=== PATIENT | female | born 1980 | race Caucasian/White ===

== ENCOUNTER 2024-08-23 08:49 | Day surgery (SDC) | payer BC, OTHER ==
[2024-08-23] MEDS ORDERED: Lactated Ringers 1,000 ML IV ONE (08:57)
[2024-08-23 09:04] LABS: HCG URINE TEST NEGATIVE (NEGATIVE)
[2024-08-23 09:08] LABS: Hematocrit 38.8 % (34.1-44.9); Hemoglobin 12.9 g/dL (11.2-15.7); Mean Cell Volume 82.4 fL (79.4-94.8); Mean Corpuscular Hemoglobin 27.4 pg (25.6-32.2); Mean Corpuscular Hgb Concent. 33.2 g/dL (32.2-35.5); Mean Platelet Volume 8.8 fL (9.4-12.3); Platelet Count 267 x10^3/uL (182-369); Red Blood Count 4.71 x10^6/uL (3.93-5.22); Red Cell Distribution Width 13.2 % (11.7-14.4); White Blood Count 6.2 x10^3/uL (3.98-10.04)
[2024-08-23] MEDS: Lactated Ringers 1,000 ML IV SCH (09:10)
[2024-08-23] MEDS: CLINDAMYCIN-D5W 900 MG/50 ML*** 900 MG/50 ML BAG IV SCH (09:15)
[2024-08-23 09:20] LABS: ALBUMIN 4.5 g/dL (3.5-5.0); ANION GAP 14.4 MEQ/L (5-15); BILIRUBIN,TOTAL 0.5 mg/dL (0.2-1.3); Calcium 9.1 mg/dL (8.4-10.2); Creatinine 1 0.73 mg/dL (0.52-1.04); EST GLOMERULAR FILTRATION RATE 102.7 ML/MIN; Potassium 4.3 mmol/L (3.5-5.1)
[2024-08-23] MEDS ORDERED: propofoL IV ONE (11:56)
[2024-08-23] MEDS ORDERED: dexAMETHasone sodium phosphate ONE (11:56)
[2024-08-23] MEDS ORDERED: Zofran 4 MG/2 ML VIAL ONE (11:56)
[2024-08-23] MEDS ORDERED: Marcaine Mpf 0.5% Vial 30 Ml ONE (12:12)
[2024-08-23] MEDS ORDERED: Xylocaine 1% Vial 30 ML PF IJ ONE (12:12)
[2024-08-23] MEDS ORDERED: PHENYLEPHRINE HCL ONE (12:22)
[2024-08-23] MEDS ORDERED: Ephedrine Sulfate 50 MG/ML ONE (12:22)
[2024-08-23] MEDS ORDERED: ROBINUL ONE (12:27)
--- NOTE | 2024-08-23 13:11 | XRAY ---
Indication: Right 1st MTP arthroscopy. Intraoperative fluoroscopy provided 54 seconds. 14 digital spot images submitted for interpretation demonstrates arthrodesis 1st MTP with intact fixation plate/screws. Correlate with intraoperative findings/report.
[2024-08-23 14:19] VITALS: BP 127/77; PULSE 96; RESP 16; TEMP 98.5; O2SAT 96
--- NOTE | 2024-08-23 15:13 | XRAY ---
54 seconds of fluoroscopy was used in surgery for a right 1st MTP arthroscopy.
--- NOTE | 2024-08-24 12:03 | OP ---
SURGERY DATE/TIME: 08/23/2024 [id number] PREOPERATIVE DIAGNOSES: 1) Osteoarthritis, first metatarsophalangeal joint, right foot. 2) Pain, right foot. POSTOPERATIVE DIAGNOSES: 1) Osteoarthritis, first metatarsophalangeal joint, right foot. 2) Pain, right foot. PROCEDURE: Arthrodesis first metatarsophalangeal joint, right foot. SURGEON: Alec Gaffney DPM. DIRECTOR OF ADULT EPILEPSY: Laura Silvestre and Laura Yi, Student, [employer]. ANESTHESIA: General plus a preoperative Ramirez block consisting of 20 mL of 1:1 mixture of 1% lidocaine plain and 0.5% bupivacaine plain. HEMOSTASIS: Ankle tourniquet set to 250 mmHg for a total of 45 total tourniquet minutes. ESTIMATED BLOOD LOSS: Approximately 5 mL. MATERIALS: Kishore first MPJ fusion arthrodesis plate, right foot with a 3.4 x 34 mm interfragmentary screw, a combination of locking and nonlocking screws, 4-0 Monocryl, 2-0 Vicryl and 3-0 nylon. INJECTABLES: 20 mL of a 1:1 mixture of 1% lidocaine plain and 0.5% bupivacaine plain injected in a Ramirez block-type fashion. INDICATIONS FOR PROCEDURE: The patient is a very pleasant 44-year-old female who presented to my service with extreme pain to her right first metatarsophalangeal joint. Patient has been dealing with this pain for quite some time and failed conservative efforts to control the pain, including anti-inflammatories, limiting activity, stiffer shoes, carbon fiber plating, as well as injections with another provider. Patient had failed that and had sought out definitive care. At this time, patient has some significant clinical factors that indicate that her arthritis is probably worse than even the x-ray demonstrates. She does have a positive mortar and pedestal test with a significant effusion of the first metatarsophalangeal joint and very limited range of motion indicating that the arthritis is fairly advanced. From the standpoint of surgical intervention, patient understands that this is the most definitive procedure, however, at that respect for no pain, there is the loss of range of motion. Patient has made clear she is okay with this as long as the pain has been dealt with. From that standpoint, patient has been consented for surgical intervention and warned of risks including but not limited to infection, hematoma, seroma, possibility of delayed wound healing, nonwound healing, possibility of failure of bone healing, possible failure of hardware and possible need for reintervention from that standpoint. Patient is aware of this. She wishes to proceed at this time. Plenty of time was allowed for the patient to ask questions, which were answered to her apparent satisfaction. No guarantees were provided as to the outcome. It is at this time we decided to proceed. DESCRIPTION OF PROCEDURE AND FINDINGS: Patient was brought into the operating room and placed on the operating room table in the supine position. At this time, general anesthesia was administered until the patient was adequately sedated. A well-padded ankle tourniquet was applied to the patient's right ankle, and the tourniquet was set to 350 mmHg. At this time, the right lower extremity was prepped and draped in the typical sterile fashion and lowered onto the surgical field. At this time, a linear incision was made just medial to the extensor hallucis longus tendon. From that standpoint, once the tendon was encountered it was retracted to he lateral aspect after freeing any soft tissue attachments. From that standpoint, this was carried down, making sure not to damage any neurovascular structures along the way until the joint capsule was encountered. The joint capsule in her case was significantly thickened and a capsulotomy was performed at the medial and lateral aspect of the joint. Once the McGlamry was passed to free up the soft tissue, allowing inspection of the first metatarsophalangeal joint head, it was deemed absolutely necessary that we proceed with the arthrodesis given that half of the cartilage on the lateral aspect of her metatarsal head was completely gone. From that standpoint, cut and conical reamers were utilized to denude the surface of the bone of any remaining cartilage, down past the subchondral plate and through the subchondral plate on the proximal phalangeal side as well. Once this was performed, copious amounts of sterile saline was utilized to flush the surgical site of any remaining cartilage. A 2.0 mm drill was utilized to fenestrate the surfaces of both the metatarsal head and the proximal phalanx. Once this was performed, a first metatarsophalangeal joint Kishore [employer] arthrodesis plate was introduced dorsally using this as a guide to position our interfragmentary compression K-wire. Once that K-wire was placed, a BB tack was applied to the proximal aspect of the plate in the position we liked proximally and then, locking and nonlocking screws were utilized to screw the plate into the bone distally. This was checked on multiple views and deemed to be accurate and adequate. From that standpoint, the interfragmentary compression screw measuring 3.4 x 34 mm was then introduced into the distal medial aspect of the proximal phalanx. Once that was performed, the eccentric hole of the plate was then drilled and an 18 mm cortical screw was then introduced. Alternating between these 2 sites to get adequate compression demonstrated a complete elimination of the joint surface. Once this occurred, a combination of locking and nonlocking screws was utilized to secure the plate in this position for the remaining holes. Once this was performed, copious amounts of sterile saline were utilized to flush the surgical site. A 2-0 Vicryl was utilized to coapt the capsular attachments to the extensor tendon. A 4-0 Monocryl was utilized to coapt the subcutaneous skin edges in a simple interrupted buried-type fashion. Following this, 3-0 nylon was utilized to coapt the skin edges in a horizontal mattress-type fashion. Following this, dressing consisting of Betadine, Adaptic, 4 x 4, Kerlix, ABD and Florencio was applied to the patient's right lower extremity with the foot orthogonal relative to longitudinal access of the leg. The patient was then reversed from anesthesia and returned to the postoperative anesthesia care unit with vital signs stable and vascular status intact. Patient handled the anesthesia, as well as the procedure, without significant complication. Postoperative orders as indicated in the patient's discharge chart.
== END 2024-08-23 14:30 | disposition home or self-care (01) ==
LOC: SDC 08:49
PROVIDERS: ATTEND Podiatrist Foot & Ankle Surgery
DX: M19.071 Primary osteoarthritis, right ankle and foot (principal); M79.671 Pain in right foot
CPT/HCPCS: 28750; 36415; 73630; 76000; 80053; 81025; 85027; C1713; J1100; J2371; J2405; J2704